=== PATIENT | female | born 1975 | race Caucasian/White ===

== ENCOUNTER 2020-10-27 17:56 | Emergency (ER) | payer OTHER ==
[~2020-10-27 17:56] MED LIST: FIORICET1 EACH PO
[2021-03-21] MEDS ORDERED: LIPITOR40 MG PO (15:09)
[2021-03-21] MEDS ORDERED: AIMOVIG AU140 MG/1 M SC (15:09)
[2021-03-21] MEDS ORDERED: ELAVIL50 MG PO (15:09)
[2021-03-21] MEDS ORDERED: EFFEXOR-XR 75 M75 MG PO (15:10)
[2021-03-21] MEDS ORDERED: HYDROCODON-ACE1 EAC2 PO (15:10)
[2021-03-21] MEDS ORDERED: GABAPENTIN600 MG PO (15:10)
[2021-03-21] MEDS ORDERED: ATARAX25 MG PO (15:11)
[2021-03-21] MEDS ORDERED: TIZANIDINE HCL4 M1 PO (15:11)
== END 2020-10-27 20:13 | disposition home or self-care (01) ==
LOC: FER 17:56
DX: M54.5 Low back pain (principal); I10 Essential (primary) hypertension; M79.7 Fibromyalgia; Z79.891 Long term (current) use of opiate analgesic; Z79.82 Long term (current) use of aspirin; Z79.899 Other long term (current) drug therapy
CPT/HCPCS: 96372; 99283; J1040; J3360

== ENCOUNTER 2021-02-06 15:56 | Emergency (ER) | payer OTHER ==
[2021-02-06 20:31] LABS: BASOPHIL 0.5 % (0-2); EOSINOPHIL 2.5 % (0-5); HCT 40.5 % (37.0-47.0); HGB 12.7 g/dl (12.5-16.0); LYMPHOCYTE 26.6 % (15-48); MCH 26.9 pg (25.0-31.0); MCHC 31.4 g/dL (32.0-36.0); MCV 85.8 fL (78.0-100.0); MONOCYTE 5.1 % (0-12); NEUTROPHIL 65.2 % (41-80); NRBC 0; PLT 283 K/uL (150-400); RBC 4.72 M/uL (4.20-5.40); RDW 14.6 % (11.5-14.0); WBC 7.7 K/uL (4.0-10.5)
[2021-02-06 20:48] LABS: ALBUMIN 3.4 g/dL (3.4-5.0); BILIRUBIN - TOTAL 0.2 mg/dL (0.2-1.0); BUN/CREAT RATIO (CALC) 12.9 RATIO; CREATININE 0.62 mg/dL (0.51-0.95); GLOBULIN (CALCULATION) 4.1 g/dL; POTASSIUM 4.3 mmol/L (3.5-5.1); TOTAL PROTEIN 7.5 g/dL (6.4-8.2)
[2021-02-06] MEDS ORDERED: PREDNISONE 10MG10 MG PO (22:59)
[2021-03-21] MEDS ORDERED: LIPITOR40 MG PO (15:09)
[2021-03-21] MEDS ORDERED: ELAVIL50 MG PO (15:09)
[2021-03-21] MEDS ORDERED: AIMOVIG AU140 MG/1 M SC (15:09)
[2021-03-21] MEDS ORDERED: HYDROCODON-ACE1 EAC2 PO (15:10)
[2021-03-21] MEDS ORDERED: EFFEXOR-XR 75 M75 MG PO (15:10)
[2021-03-21] MEDS ORDERED: GABAPENTIN600 MG PO (15:10)
[2021-03-21] MEDS ORDERED: ATARAX25 MG PO (15:11)
[2021-03-21] MEDS ORDERED: TIZANIDINE HCL4 M1 PO (15:11)
== END 2021-02-06 23:00 | disposition home or self-care (01) ==
LOC: FER 15:56
PROVIDERS: Emergency Medicine Emergency Medical Services
DX: M79.7 Fibromyalgia (principal); Z90.49 Acquired absence of other specified parts of digestive tract; Z88.8 Allergy status to other drugs, medicaments and biological substances; Z88.6 Allergy status to analgesic agent
CPT/HCPCS: 36415; 80053; 82550; 85025; 96372; J1100; J1170; J2405; J2800; J7030; J7050

== ENCOUNTER 2021-03-26 10:26 | Day surgery (SDCO) | payer OTHER ==
[~2021-03-26] VITALS: Wt 90.7 kg
[~2021-03-26 10:26] MED LIST changes: +AIMOVIG AU140 MG/1 M SC; +ATARAX25 MG PO; +EFFEXOR-XR 75 M75 MG PO; +ELAVIL50 MG PO; +GABAPENTIN600 MG PO; +HYDROCODON-ACE1 EAC2 PO; +LIPITOR40 MG PO; +PREDNISONE 10MG10 MG PO; +TIZANIDINE HCL4 M1 PO
[2021-03-26 11:04] LABS: HCG (URINE) SCREEN NEGATIVE (NEGATIVE)
[2021-03-26 12:13] LABS: HCT 34.6 % (37.0-47.0); MCHC 31.8 g/dL (32.0-36.0); MCV 84.8 fL (78.0-100.0); MPV 9.9 fL (6.0-9.5); RBC 4.08 M/uL (4.20-5.40); RDW 15.1 % (11.5-14.0); WBC 6.4 K/uL (4.0-10.5)
[2021-03-26 12:57] LABS: BILIRUBIN - TOTAL 0.2 mg/dL (0.2-1.0); BUN/CREAT RATIO (CALC) 9.2 RATIO; CREATININE 0.65 mg/dL (0.51-0.95); GLOBULIN (CALCULATION) 3.7 g/dL; POTASSIUM 3.8 mmol/L (3.5-5.1); TOTAL PROTEIN 6.7 g/dL (6.4-8.2)
--- NOTE | 2021-03-26 22:31 | NUR ---
1939 Dr. Conte called in to inquire how patient is doing. Order for home medications if patient asks for them. Order to increase diet as tolerated.
[2021-03-27 06:05] LABS: BASOPHIL 0.2 % (0-2); EOSINOPHIL 0 % (0-5); HCT 32.5 % (37.0-47.0); HGB 10.3 g/dl (12.5-16.0); LYMPHOCYTE 11.4 % (15-48); MCH 26.4 pg (25.0-31.0); MCHC 31.7 g/dL (32.0-36.0); MCV 83.3 fL (78.0-100.0); MONOCYTE 4.7 % (0-12); MPV 10.1 fL (6.0-9.5); NEUTROPHIL 83.1 % (41-80); NRBC 0; PLT 314 K/uL (150-400); RDW 15.6 % (11.5-14.0); WBC 10.6 K/uL (4.0-10.5)
[2021-03-27 09:39] LABS: ALBUMIN 2.7 g/dL (3.4-5.0); BILIRUBIN - TOTAL 0.2 mg/dL (0.2-1.0); BUN/CREAT RATIO (CALC) 10.3 RATIO; CREATININE 0.58 mg/dL (0.51-0.95); GLOBULIN (CALCULATION) 3.6 g/dL; TOTAL PROTEIN 6.3 g/dL (6.4-8.2)
[2021-03-27] MEDS ORDERED: MI-ACID80 MG PO (16:16)
[2021-03-27] MEDS ORDERED: COLACE100 MG PO (16:16)
[2021-03-27] MEDS ORDERED: OXYCODONE-ACET1 EAC1 PO (16:16)
[2021-03-27] MEDS ORDERED: IBUPROFEN600 MG PO (16:16)
== END 2021-03-27 17:25 | disposition home or self-care (01) ==
LOC: FSDC 10:26 → FMS 10:26
PROVIDERS: ADMIT Obstetrics & Gynecology
DX: N72 Inflammatory disease of cervix uteri (principal); D25.1 Intramural leiomyoma of uterus; N83.8 Other noninflammatory disorders of ovary, fallopian tube and broad ligament; N83.292 Other ovarian cyst, left side; N83.291 Other ovarian cyst, right side; M79.7 Fibromyalgia; M19.90 Unspecified osteoarthritis, unspecified site; G89.29 Other chronic pain; M54.9 Dorsalgia, unspecified; R79.89 Other specified abnormal findings of blood chemistry; E66.9 Obesity, unspecified; Z68.35 Body mass index [BMI] 35.0-35.9, adult; Z86.73 Personal history of transient ischemic attack (TIA), and cerebral infarction without residual deficits; Z79.82 Long term (current) use of aspirin; Z79.899 Other long term (current) drug therapy; Z88.6 Allergy status to analgesic agent; Z88.8 Allergy status to other drugs, medicaments and biological substances
CPT/HCPCS: 36415; 80053; 84703; 85025; 86850; 86900; 86901; G0378; J0690; J1100; J1170; J2250; J2405; J2704; J2710; J3010; J7120; J7121

== ENCOUNTER 2021-05-16 02:33 | Emergency (ER) | payer OTHER ==
[~2021-05-16 02:33] MED LIST changes: +COLACE100 MG PO; +IBUPROFEN600 MG PO; +MI-ACID80 MG PO; +OXYCODONE-ACET1 EAC1 PO
[2021-05-16 04:18] LABS: HCT 38.1 % (37.0-47.0); HGB 11.6 g/dl (12.5-16.0); MCHC 30.4 g/dL (32.0-36.0); MCV 82.1 fL (78.0-100.0); MPV 10.4 fL (6.0-9.5); RBC 4.64 M/uL (4.20-5.40); RDW 15.2 % (11.5-14.0); WBC 8.5 K/uL (4.0-10.5)
[2021-05-16 04:50] LABS: BUN 9 mg/dL (7-18); BUN/CREAT RATIO (CALC) 13.2 RATIO; C-REACTIVE PROTEIN < 0.20 mg/dL (<=0.90); CHLORIDE 106 mmol/L (98-107); CO2 (BICARBONATE) 26 mmol/L (21-32); CPK 44 U/L (26-192); CREATININE 0.68 mg/dL (0.51-0.95); GLUCOSE 95 mg/dL (74-106)
[2021-05-16 04:51] LABS: POTASSIUM 5.3 mmol/L (3.5-5.1)
[2021-05-16] MEDS ORDERED: PREDNISONE 10MG10 MG PO (05:31)
== END 2021-05-16 05:46 | disposition home or self-care (01) ==
LOC: FER 02:33
PROVIDERS: Emergency Medicine Emergency Medical Services
DX: M79.10 Myalgia, unspecified site (principal); Z86.73 Personal history of transient ischemic attack (TIA), and cerebral infarction without residual deficits; Z88.8 Allergy status to other drugs, medicaments and biological substances; Z88.6 Allergy status to analgesic agent; Z88.0 Allergy status to penicillin; Z79.82 Long term (current) use of aspirin
CPT/HCPCS: 36415; 80048; 82550; 86140; 96372; J1100; J1170; J2405; J7120

== ENCOUNTER 2021-06-12 17:34 | Emergency (ER) | payer OTHER ==
[2021-06-12 19:03] LABS: BASOPHIL 0.4 % (0-2); EOSINOPHIL 1.2 % (0-5); HCT 36.9 % (37.0-47.0); HGB 11.3 g/dl (12.5-16.0); LYMPHOCYTE 22.8 % (15-48); MCH 25.6 pg (25.0-31.0); MCHC 30.6 g/dL (32.0-36.0); MCV 83.5 fL (78.0-100.0); MONOCYTE 7.3 % (0-12); MPV 9.6 fL (6.0-9.5); NEUTROPHIL 67.9 % (41-80); NRBC 0; PLT 250 K/uL (150-400); RBC 4.42 M/uL (4.20-5.40); RDW 15.7 % (11.5-14.0); WBC 8.2 K/uL (4.0-10.5)
[2021-06-12 19:19] LABS: BUN/CREAT RATIO (CALC) 15.8 RATIO; CREATININE 0.57 mg/dL (0.51-0.95); POTASSIUM 4.7 mmol/L (3.5-5.1)
[2021-06-12] MEDS ORDERED: PREDNISONE 20MG20 MG PO (21:04)
== END 2021-06-12 22:22 | disposition home or self-care (01) ==
LOC: FER 17:34
PROVIDERS: Nurse Practitioner Family
DX: M62.838 Other muscle spasm (principal); R07.9 Chest pain, unspecified; M54.30 Sciatica, unspecified side; M79.7 Fibromyalgia; Z98.890 Other specified postprocedural states; Z88.6 Allergy status to analgesic agent; Z88.8 Allergy status to other drugs, medicaments and biological substances; Z79.899 Other long term (current) drug therapy; Z79.82 Long term (current) use of aspirin; Z79.891 Long term (current) use of opiate analgesic
CPT/HCPCS: 36415; 71045; 80048; 84484; 85025; 93005; J1100; J1170; J2405; J7030

== ENCOUNTER 2021-07-04 19:56 | Emergency (ER) | payer OTHER ==
[~2021-07-04 19:56] MED LIST changes: +PREDNISONE 20MG20 MG PO
[2021-07-05 00:12] LABS: BASOPHIL 0.5 % (0-2); EOSINOPHIL 1.2 % (0-5); HCT 39.4 % (37.0-47.0); HGB 12.2 g/dl (12.5-16.0); LYMPHOCYTE 24.6 % (15-48); MCH 25.1 pg (25.0-31.0); MCV 80.9 fL (78.0-100.0); MPV 9.5 fL (6.0-9.5); NEUTROPHIL 66.4 % (41-80); NRBC 0; PLT 298 K/uL (150-400); RBC 4.87 M/uL (4.20-5.40); RDW 15.8 % (11.5-14.0); WBC 9.2 K/uL (4.0-10.5)
[2021-07-05 00:16] LABS: BUN/CREAT RATIO (CALC) 7.1 RATIO; CREATININE 0.84 mg/dL (0.51-0.95)
[2021-07-05] MEDS ORDERED: MEDROL 4MG DOSEP4 MG PO (01:25)
[2021-07-05] MEDS ORDERED: NORCO 5-325 TA1 EACH PO (01:25)
== END 2021-07-05 01:55 | disposition home or self-care (01) ==
LOC: FER 19:56
PROVIDERS: Internal Medicine
DX: M51.17 Intervertebral disc disorders with radiculopathy, lumbosacral region (principal); M48.07 Spinal stenosis, lumbosacral region; D64.9 Anemia, unspecified; Z88.8 Allergy status to other drugs, medicaments and biological substances; Z88.6 Allergy status to analgesic agent; Z86.73 Personal history of transient ischemic attack (TIA), and cerebral infarction without residual deficits
CPT/HCPCS: 36415; 72131; 80048; 85025; 96372; J1170

== ENCOUNTER 2021-08-10 19:03 | Emergency (ER) | payer OTHER ==
[~2021-08-10 19:03] MED LIST changes: +MEDROL 4MG DOSEP4 MG PO; +NORCO 5-325 TA1 EACH PO
[2021-08-10 20:24] LABS: BASOPHIL 0.5 % (0-2); EOSINOPHIL 0.9 % (0-5); HCT 39.5 % (37.0-47.0); HGB 11.7 g/dl (12.5-16.0); LYMPHOCYTE 35.6 % (15-48); MCH 25.2 pg (25.0-31.0); MCHC 29.6 g/dL (32.0-36.0); MCV 85.1 fL (78.0-100.0); MONOCYTE 7.6 % (0-12); MPV 10.3 fL (6.0-9.5); NEUTROPHIL 55.2 % (41-80); NRBC 0; PLT 237 K/uL (150-400); RBC 4.64 M/uL (4.20-5.40); RDW 16.5 % (11.5-14.0); WBC 5.5 K/uL (4.0-10.5)
[2021-08-10 20:38] LABS: ALKALINE PHOSHATASE 133 U/L (46-116); ALT 81 U/L (14-59); AST 52 U/L (15-37); BILIRUBIN - TOTAL 0.2 mg/dL (0.2-1.0); BUN 9 mg/dL (7-18); C-REACTIVE PROTEIN <0.20 mg/dL (<=0.90); CHLORIDE 106 mmol/L (98-107); CO2 (BICARBONATE) 22 mmol/L (21-32); CPK 54 U/L (26-192); CREATININE 0.69 mg/dL (0.51-0.95); GLOBULIN (CALCULATION) 3.2 g/dL; GLUCOSE 87 mg/dL (74-106); MAGNESIUM 1.8 mg/dL (1.8-2.4); POTASSIUM 4.4 mmol/L (3.5-5.1); TOTAL PROTEIN 6.2 g/dL (6.4-8.2)
== END 2021-08-10 23:30 | disposition home or self-care (01) ==
LOC: FER 19:03
PROVIDERS: Emergency Medicine
DX: M79.7 Fibromyalgia (principal); Z88.6 Allergy status to analgesic agent; Z88.8 Allergy status to other drugs, medicaments and biological substances
CPT/HCPCS: 36415; 80053; 82550; 83540; 83735; 85025; 86140; 96372; J1170; J2550; J7030

== ENCOUNTER 2021-08-25 19:18 | Emergency (ER) | payer OTHER ==
[2021-08-25 21:04] LABS: BASOPHIL 0.3 % (0-2); EOSINOPHIL 0.2 % (0-5); HCT 35.2 % (37.0-47.0); HGB 10.4 g/dl (12.5-16.0); LYMPHOCYTE 25.3 % (15-48); MCH 25.2 pg (25.0-31.0); MCHC 29.5 g/dL (32.0-36.0); MCV 85.2 fL (78.0-100.0); MONOCYTE 7.3 % (0-12); MPV 10.1 fL (6.0-9.5); NEUTROPHIL 66.7 % (41-80); NRBC 0; PLT 277 K/uL (150-400); RBC 4.13 M/uL (4.20-5.40); WBC 8.8 K/uL (4.0-10.5)
[2021-08-25 21:21] LABS: BILIRUBIN - TOTAL 0.1 mg/dL (0.2-1.0); BUN/CREAT RATIO (CALC) 14.8 RATIO; CREATININE 0.81 mg/dL (0.51-0.95); GLOBULIN (CALCULATION) 2.9 g/dL; POTASSIUM 3.8 mmol/L (3.5-5.1); TOTAL PROTEIN 5.9 g/dL (6.4-8.2)
== END 2021-08-26 11:01 | disposition home or self-care (01) ==
LOC: FER 19:18
PROVIDERS: Emergency Medicine
DX: R07.89 Other chest pain (principal); R20.2 Paresthesia of skin; Z88.6 Allergy status to analgesic agent; Z88.8 Allergy status to other drugs, medicaments and biological substances
CPT/HCPCS: 36415; 70450; 70544; 70548; 70551; 71045; 71275; 80053; 84484; 85025; 85379; 93005; A9579; C9113; J1885; J2405; J7030; Q9967

== ENCOUNTER 2021-10-14 18:41 | Emergency (ER) | payer OTHER ==
[2021-10-14 23:26] LABS: BASOPHIL 0.2 % (0-2); EOSINOPHIL 0.2 % (0-5); HCT 40.8 % (37.0-47.0); HGB 12.5 g/dl (12.5-16.0); LYMPHOCYTE 24.8 % (15-48); MCH 25.3 pg (25.0-31.0); MCHC 30.6 g/dL (32.0-36.0); MCV 82.6 fL (78.0-100.0); MONOCYTE 6.4 % (0-12); MPV 10.7 fL (6.0-9.5); NRBC 0; PLT 275 K/uL (150-400); RBC 4.94 M/uL (4.20-5.40); WBC 8.3 K/uL (4.0-10.5)
[2021-10-14 23:53] LABS: ALBUMIN 3.3 g/dL (3.4-5.0); ALKALINE PHOSHATASE 97 U/L (46-116); ALT 20 U/L (14-59); AST 18 U/L (15-37); BILIRUBIN - TOTAL 0.4 mg/dL (0.2-1.0); BUN 9 mg/dL (7-18); BUN/CREAT RATIO (CALC) 15.8 RATIO; CHLORIDE 100 mmol/L (98-107); CO2 (BICARBONATE) 25 mmol/L (21-32); CREATININE 0.57 mg/dL (0.51-0.95); GLOBULIN (CALCULATION) 3.6 g/dL; GLUCOSE 81 mg/dL (74-106); POTASSIUM 4.3 mmol/L (3.5-5.1); TOTAL PROTEIN 6.9 g/dL (6.4-8.2)
[2021-10-14 23:54] LABS: C-REACTIVE PROTEIN < 0.20 mg/dL (<=0.90)
== END 2021-10-15 00:25 | disposition home or self-care (01) ==
LOC: FER 18:41
PROVIDERS: Emergency Medicine
DX: M54.50 Low back pain, unspecified (principal); F17.200 Nicotine dependence, unspecified, uncomplicated; Z88.5 Allergy status to narcotic agent; Z88.8 Allergy status to other drugs, medicaments and biological substances
CPT/HCPCS: 36415; 80053; 85025; 86140; 99283; J1170

== ENCOUNTER 2021-11-10 12:50 | Emergency (ER) | payer OTHER ==
[2021-11-10] MEDS ORDERED: NORCO 5-325 TA1 EACH PO (13:16)
[2021-11-10] MEDS ORDERED: CYCLOBENZAPRINE10 MG PO (13:16)
[2021-11-10] MEDS ORDERED: MEDROL 4MG DOSEP4 MG PO (13:16)
== END 2021-11-10 13:44 | disposition home or self-care (01) ==
LOC: FER 12:50
DX: M54.32 Sciatica, left side (principal); M54.31 Sciatica, right side; Z88.5 Allergy status to narcotic agent; Z88.8 Allergy status to other drugs, medicaments and biological substances
CPT/HCPCS: 99283; J1100

== ENCOUNTER 2021-11-23 07:08 | Emergency (ER) | payer OTHER ==
[~2021-11-23] VITALS: Ht 160 cm; Wt 106.1 kg
[~2021-11-23 07:08] MED LIST changes: +CYCLOBENZAPRINE10 MG PO
[2021-11-23 10:46] LABS: BASOPHIL 0.2 % (0-2); EOSINOPHIL 0.8 % (0-5); HCT 35.3 % (37.0-47.0); HGB 10.4 g/dl (12.5-16.0); LYMPHOCYTE 17.6 % (15-48); MCH 24.9 pg (25.0-31.0); MCHC 29.5 g/dL (32.0-36.0); MCV 84.7 fL (78.0-100.0); MONOCYTE 7.2 % (0-12); MPV 9.5 fL (6.0-9.5); NEUTROPHIL 73.8 % (41-80); NRBC 0; PLT 305 K/uL (150-400); RBC 4.17 M/uL (4.20-5.40); RDW 16.4 % (11.5-14.0); WBC 8.3 K/uL (4.0-10.5)
[2021-11-23 10:51] LABS: INR 0.89 (0.9-1.2); PROTHROMBIN TIME 11.5 SECONDS (11.8-13.4); PTT 21.6 SECONDS (24.4-34.7)
[2021-11-23 10:52] LABS: D-DIMER 0.45 ug/mLFEU (0.00-0.41)
[2021-11-23 10:57] LABS: BILIRUBIN NEGATIVE (NEGATIVE); BLOOD NEGATIVE Ery/uL (NEGATIVE); CLARITY CLEAR (CLEAR); COLOR YELLOW (YELLOW); GLUCOSE (U) NORMAL (NORMAL); LEUKOCYTES NEGATIVE Leu/uL (NEGATIVE); NITRITE NEGATIVE (NEGATIVE); PROTEIN NEGATIVE (NEGATIVE); SPECIFIC GRAVITY >=1.030 (1.001-1.030); UROBILINOGEN 0.2 mg/dL (0.2-1.0); pH 5.5 (5.0-9.0)
[2021-11-23 11:24] LABS: ALBUMIN 3.1 g/dL (3.4-5.0); ALKALINE PHOSHATASE 98 U/L (46-116); ALT 69 U/L (14-59); AST 26 U/L (15-37); BILIRUBIN - TOTAL 0.1 mg/dL (0.2-1.0); BUN 11 mg/dL (7-18); BUN/CREAT RATIO (CALC) 18.3 RATIO; CHLORIDE 103 mmol/L (98-107); CO2 (BICARBONATE) 27 mmol/L (21-32); GLOBULIN (CALCULATION) 3.4 g/dL; GLUCOSE 88 mg/dL (74-106); MAGNESIUM 1.7 mg/dL (1.8-2.4); TOTAL PROTEIN 6.5 g/dL (6.4-8.2)
[2021-11-23] MEDS ORDERED: LASIX40 MG PO (11:46)
[2021-11-23] MEDS ORDERED: K-TAB ER20 MEQ PO (11:46)
== END 2021-11-23 13:09 | disposition home or self-care (01) ==
LOC: FER 07:08
PROVIDERS: Emergency Medicine
DX: R60.0 Localized edema (principal); Z88.5 Allergy status to narcotic agent; Z88.6 Allergy status to analgesic agent; Z88.8 Allergy status to other drugs, medicaments and biological substances
CPT/HCPCS: 36415; 80053; 81003; 83735; 83880; 84443; 84484; 85025; 85379; 85610; 85730

== ENCOUNTER 2022-04-05 18:23 | Emergency (ER) | payer OTHER ==
[~2022-04-05 18:23] MED LIST changes: +K-TAB ER20 MEQ PO; +LASIX40 MG PO
== END 2022-04-05 21:03 | disposition home or self-care (01) ==
LOC: FER 18:23
DX: S93.402A Sprain of unspecified ligament of left ankle, initial encounter (principal); S83.92XA Sprain of unspecified site of left knee, initial encounter; E78.5 Hyperlipidemia, unspecified; Z79.899 Other long term (current) drug therapy; Z86.73 Personal history of transient ischemic attack (TIA), and cerebral infarction without residual deficits; Z88.5 Allergy status to narcotic agent; Z88.8 Allergy status to other drugs, medicaments and biological substances; W19.XXXA Unspecified fall, initial encounter; Y92.009 Unspecified place in unspecified non-institutional (private) residence as the place of occurrence of the external cause
CPT/HCPCS: 73564; 73610